=== PATIENT | female | born 1960 | race African-American/Black ===

== ENCOUNTER 2023-01-19 08:45 | Outpatient (AMB) | payer OTHER, SELFPAY ==
[2023-01-19 08:54] VITALS: BP 148/80; PULSE 57; O2SAT 98; BMI 29.8
--- NOTE | 2023-01-19 08:54 | MHC.PC.OV ---
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 Past medical history significant for hypertension, type 2 diabetes mellitus, hypercholesteremia. Patient speaks [place], patient presents today with her daughter that assists in interpretation. Patient requesting a refill on atorvastatin and eye drops, however she does not remember the name of her eye drops. Patient call and notify office of eye drop medication that she needs refilled. Referral placed to ophthalmology. Previous: Kathleen; at [facility] will request records, [facility] Medical History (Updated 01/19/23 @ 09:20 by RAFFI Calvillo) delivery delivered Surgical History (Updated 01/19/23 @ 09:03 by Rama Diehl MA) Status post removal of thyroid nodule Family History (Updated 01/19/23 @ 09:22 by RAFFI Calvillo) Mother No problems noted. Daughter No problems noted. Social History (Updated 01/19/23 @ 09:23 by RAFFI Calvillo) Household Members: Family Housing: House Alcohol intake: never Patient Tobacco Use Status: Never used Tobacco Questionnaire PHQ-9 Over the last 2 weeks, how often have you been bothered by any of the following problems? 1. Little interest or pleasure in doing things: not at all 2. Feeling down, depressed, or hopeless: not at all 3. Trouble falling or staying asleep, or sleeping too much: not at all 4. Feeling tired or having little energy: not at all 5. Poor appetite or overeating: not at all 6. Feeling bad about yourself - or that you are a failure or have let yourself or your family down: not at all 7. Trouble concentrating on things, such as reading the newspaper or watching television: not at all 8. Moving or speaking so slowly that other people could have noticed. Or the opposite - being so fidgety or restless that you have been moving around a lot more than usual: not at all 9. Thoughts that you would be better off or of hurting yourself in some way: not at all Total score: 0 Depression Screening Interpretation: Negative 89304 - PHQ-9 Billing: Yes Source: Developed by Drs. Johnathan Juárez, Chichi Keene, Robbie Woods and colleagues, with an educational aime from [employer]. Thrive Questionnaire Date Thrive assessed: 01/19/23 I am a: Patient What is your living situation today?: I have a steady place to live Within the past 12 months, did the food you bought not last and you didn't have the money to get more?: Never true Within the past 12 months, did you worry whether your food would run out before you got money to buy more?: Never true Do you have trouble paying for medicines?: Yes Do you have trouble getting transportation to medical appointments?: Yes Do you have trouble paying your heating and electricity bill?: No Do you have trouble taking care of your child, family member or friend?: No Do you have trouble with day-to-day activities such as bathing, preparing meals, shopping, managing finances, etc.?: No Are you currently unemployed and looking for a job?: No Are you interested in more education?: No AUDIT C Alcohol Use Questionnaire (AUDIT-C) 1. How often do you have a drink containing alcohol?: Never 3. How often do you have six or more drinks on one occasion?: Never Total Score: 0 CHRISTIN-7 AMB Questionnaire CHRISTIN-7 Date CHRISTIN - 7 assessed: 01/19/23 Feeling nervous, anxious, or on edge: 0 = Not at all Not being able to stop or control worryin = Not at all Worrying too much about different things: 0 = Not at all Trouble relaxin = Not at all Being so restless that it is hard to sit still: 0 = Not at all Becoming easily annoyed or irritable: 0 = Not at all Feeling afraid as if something awful might happen: 0 = Not at all Total CHRISTIN-7 score (0-4 normal; 5-9 mild; 10-14 moderate; 15-21 severe): 0 Source: Developed by Drs. Johnathan Juárez, Chichi Keene, Robbie Woods and colleagues, with an educational aime from [employer]. CHRISTIN-7 Assessment Billing CHRISTIN-7 Assessment Tool: CHRISTIN-7 Assessment 30268 Review of Systems Const Denies chills, Denies fatigue, Denies fever(s) and Denies poor appetite Eyes Denies no additional complaints ENT Reports Normal hearing present Card Denies chest pain, Denies syncope, Denies rapid heart rate and Denies dyspnea Resp Denies cough and Denies dyspnea GI Denies change in stool character, Denies constipation, Denies diarrhea, Denies nausea and Denies vomiting Denies urinary frequency, Denies dysuria and Denies urinary urgency Neuro Reports Normal hearing present, Denies confusion and Denies syncope Psych Denies confusion Endo Denies fatigue Physical exam (Primary Care) Vital Signs: Last Vital Signs Pulse 57 01/19/23 08:54 BP 148/80 H 01/19/23 08:54 Pulse Ox 98 01/19/23 08:54 Oxygen Delivery Method Room Air 01/19/23 08:54 BMI result Body Mass Index 29.8 Tobacco/Smoking Status: Tobacco use Status Tobacco use date assessed 01/19/23 01/19/23 09:07 Patient Tobacco Use Status Never used Tobacco 01/19/23 09:23 PHQ-9: PHQ-9 Score PHQ-9: Total score 0 01/19/23 09:24 Depression Screening Interpretation: Negative Thrive Assessment: Date of Thrive Assessment Date Thrive assessed 01/19/23 01/19/23 09:07 Const General: No confusion Orientation/consciousness: No confusion HENMT Head: Yes normocephalic and Yes atraumatic Eyes Conjunctivae: conjunctivae normal Chest Chest palpation & inspection: normal inspection of the chest Resp Effort & Inspection: normal respiratory effort Auscultation: clear to auscultation bilaterally, no crackles, no rhonchi and no wheezes Cardio Rate: regular rate Rhythm: regular rhythm Heart sounds: S1 normal heart sound present and S2 normal heart sound present GI Inspection: Yes normal to inspection Neuro General: No confusion Cranial nerves: Yes Normal hearing present Extrem General: No edema Results AMB Hemoglobin A1c AMB Hemoglobin A1c 7.9 % Last Edit by Rama Diehl MA on 01/19/23 09:09 Results Reviewed Results Reviewed: Laboratory Last Values Hgb A1c (Clinic) 7.9 % (4.0-6.0) H 01/19/23 09:08 Assessment and Plan Assessment & Plan (1) Type 2 diabetes mellitus: Code(s): E11.9 - Type 2 diabetes mellitus without complications Plan: Continue on metformin and glipizide hgb A1c ordered (2) Hypertension: Code(s): I10 - Essential (primary) hypertension Plan: Blood pressure elevated in office today. Continue on telmisartan-amlodipine Follow low salt diet and excercise (3) Hypocholesteremia: Code(s): E78.6 - Lipoprotein deficiency Plan: Continue on statin, refill sent to patients pharmacy. Fasting lipi panel ordered. Plan Follow up in 3 months for physical exam Orders: Orders Comprehensive [place]. Panel Fast Today I10 - Essential (primary) hypertension Hemoglobin A1c Today E11.9 - Type 2 diabetes mellitus without complications Lipid Panel Today E78.6 - Lipoprotein deficiency TSH reflex Free T4 Today Z13.29 - Encounter for screening for other suspected endocrine disorder Complete Blood Count Auto Diff Today Z13.0 - Encounter for screening for diseases of the blood and blood-forming organs and certain disorders involving the immune mechanism AMB Hemoglobin A1c Today E11.9 - Type 2 diabetes mellitus without complications Referrals Ophthalmology Referral Z01.00 - Encounter for examination of eyes and vision without abnormal findings Medications: New atorvastatin 40 mg PO DAILY 30 tabs 3RF E78.6 - Lipoprotein deficiency Coding Level of Care Code New Pt Level 4 (03801) Diagnoses Type 2 diabetes mellitus E11.9 Hypertension I10 Hypocholesteremia E78.6 Additional Codes CHRISTIN-7 Assessment Billing - CHRISTIN-7 Assessment Tool: CHRISTIN-7 Assessment 33782 ([id number])
== END 2023-01-19 09:46 | disposition home or self-care (01) ==
PROVIDERS: PCP Nurse Practitioner Family; Visit Provider Nurse Practitioner Family
DX: E11.9 Type 2 diabetes mellitus without complications (principal); I10 Essential (primary) hypertension; E78.6 Lipoprotein deficiency
CPT/HCPCS: 83036; 99204

== ENCOUNTER 2023-01-19 09:50 | Outpatient (REF) | payer OTHER, SELFPAY ==
[2023-01-19 10:07] LABS: MANUAL DIFF FLAG NO
[2023-01-19 10:33] LABS: Basophils Percent Auto 0.4 % (0-2); Eosinophils Absolute Auto 0.1 X10*3/uL (0.0-0.4); Eosinophils Percent Auto 1.5 % (0-4); Hematocrit 38.7 % (37.0-47.0); Hemoglobin 12.8 g/dl (12.0-16.0); Imm Gran Abs Auto 0.02 X10*3/uL (0.00-0.03); Imm Gran Pct Auto 0.4 % (0.0-0.4); Lymphocytes Absolute Auto 1.7 X10*3/uL (1.2-4.9); Lymphocytes Percent Auto 36.5 % (20-40); Mean Corpuscular HGB Conc 33.1 g/dl (31.0-35.0); Mean Corpuscular Hemoglobin 26.7 pg (27.0-33.0); Mean Corpuscular Volume 80.8 fL (80.0-98.0); Monocytes Absolute Auto 0.4 X10*3/uL (0.1-1.2); Monocytes Percent Auto 8.7 % (2-11); Neutrophils Absolute Auto 2.5 x10*3/uL (2.0-8.3); Neutrophils Percent Auto 52.5 % (45-73); Platelet Count 237 X10*3/uL (160-400); Red Blood Count 4.79 X10*6/uL (4.20-5.50); Red Cell Distribution Width 13.8 % (11.0-16.0); White Blood Count 4.7 X10*3/uL (4.8-10.8)
[2023-01-19 11:26] LABS: Estimated Average Glucose 174 mg/dL; Hemoglobin A1c % 7.7 %
[2023-01-19 11:51] LABS: Alanine Aminotransferase 13 U/L (0-31); Alkaline Phosphatase 107 U/L (39-117); Anion Gap 12 (12-20); Aspartate Amino Transferase 13 U/L (5-31); Bilirubin Total 0.4 mg/dL (0.0-1.0); Blood Urea Nitrogen 10 mg/dL (9-16); Calcium 9.4 mg/dL (8.4-10.2); Carbon Dioxide 28 mmol/L (22-29); Chloride 106 mmol/L (96-108); Cholesterol 120 mg/dL; Estimated Glomerular Filt Rate > 60; Glucose Fasting 179 mg/dL (60-99); HDL Cholesterol 42 mg/dL; LDL Cholesterol Calculated 71 mg/dl; Potassium 4.6 mmol/L (3.3-5.1); Sodium 141 mmol/L (135-145); Total Protein 7.1 g/dL (6.5-8.0); Triglycerides 35 mg/dL
[2023-01-19 11:56] LABS: TSH reflex Free T4 1.63 uIU/mL (0.32-4.0)
== END 2023-01-19 09:51 | disposition home or self-care (01) ==
LOC: HO.LAB 09:50
PROVIDERS: PCP Nurse Practitioner Family; Visit Provider Nurse Practitioner Family
DX: Z13.29 Encounter for screening for other suspected endocrine disorder (principal); Z13.0 Encounter for screening for diseases of the blood and blood-forming organs and certain disorders involving the immune mechanism; I10 Essential (primary) hypertension; E78.6 Lipoprotein deficiency; E11.9 Type 2 diabetes mellitus without complications
CPT/HCPCS: 36415; 80053; 80061; 83036; 84443; 85025

== ENCOUNTER 2023-04-20 07:45 | Outpatient (AMB) | payer OTHER, SELFPAY ==
[2023-04-20 08:29] VITALS: BP 156/80; PULSE 59; O2SAT 98; BMI 29.6
--- NOTE | 2023-04-20 08:29 | MHC.OFVISPED ---
Intake Pediatric Intake Visit Reasons: pe Allergies No Known Allergies Allergy (Verified 01/19/23 09:14) PFS Medical History (Updated 01/22/23 @ 12:41 by RAFFI Calvillo) delivery delivered Surgical History (Updated 01/19/23 @ 09:03 by Rama Diehl MA) Status post removal of thyroid nodule Family History (Updated 01/19/23 @ 09:22 by RAFFI Calvillo) Mother No problems noted. Daughter No problems noted. Social History (Updated 01/19/23 @ 09:23 by RAFFI Calvillo) Household Members: Family Housing: House Alcohol intake: never Patient Tobacco Use Status: Never used Tobacco Coding
--- NOTE | 2023-04-20 08:29 | MHC.PC.OV ---
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 Set Up Operator Language: Jonny Creole Gear Cutting Machine Set Up Operator Name: Kanwal Javier Information Interpreted: non-clinical & clinical Allergies No Known Allergies Allergy (Verified 04/20/23 08:34) Tobacco use date assessed: 04/20/23 Dental Screening Dental Screen Date: 04/20/23 Did you have a dental visit in the last 12 months?: No Did you have a dental problem in the last 6 months where you did not have access to dental care?: No HPI HPI Comments History of Present Illness Details 62-year-old female past medical history significant for hypertension, type 2 diabetes mellitus and hypercholesteremia. Patient last seen in January, presents today for physical exam. HGB A1c 8.2%, patient reports she was not taking medications. Refill sent on metformin and glipizide patient advised to follow low-carbohydrate diet. Blood pressure also elevated office today but patient reported that she did take her blood pressure medication yet. Patient advised to do so when she gets home. Mammogram: 2021, order Pap smear: Completed 2022, negative Colonoscopy: AGE 50, Referral Eye exam: Previously referred, Peggy nelsonoinmonica Flu shot declined at this time patient states she will get a different day. 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 Daughter No problems noted. Social History Household Members: Family Housing: House Alcohol intake: never Patient Tobacco Use Status: Never used Tobacco Cognitive needs: No Hearing needs: No Vision needs: No Questionnaire PHQ-9 Over the last 2 weeks, how often have you been bothered by any of the following problems? 1. Little interest or pleasure in doing things: not at all 2. Feeling down, depressed, or hopeless: not at all 3. Trouble falling or staying asleep, or sleeping too much: not at all 4. Feeling tired or having little energy: not at all 5. Poor appetite or overeating: not at all 6. Feeling bad about yourself - or that you are a failure or have let yourself or your family down: not at all 7. Trouble concentrating on things, such as reading the newspaper or watching television: not at all 8. Moving or speaking so slowly that other people could have noticed. Or the opposite - being so fidgety or restless that you have been moving around a lot more than usual: not at all 9. Thoughts that you would be better off or of hurting yourself in some way: not at all Total score: 0 Depression Screening Interpretation: Negative Depression Screening Done: Yes 81079 - PHQ-9 Billing: Yes Source: Developed by Drs. Johnathan Juárez, Chichi Keene, Robbie Woods and colleagues, with an educational aime from [employer]. Thrive Questionnaire Date Thrive assessed: 01/19/23 AUDIT C Alcohol Use Questionnaire (AUDIT-C) 1. How often do you have a drink containing alcohol?: Never 3. How often do you have six or more drinks on one occasion?: Never Total Score: 0 CHRISTIN-7 AMB Questionnaire CHRISTIN-7 Date CHRISTIN - 7 assessed: 04/20/23 Feeling nervous, anxious, or on edge: 0 = Not at all Not being able to stop or control worryin = Not at all Worrying too much about different things: 0 = Not at all Trouble relaxin = Not at all Being so restless that it is hard to sit still: 0 = Not at all Becoming easily annoyed or irritable: 0 = Not at all Feeling afraid as if something awful might happen: 0 = Not at all Total CHRISTIN-7 score (0-4 normal; 5-9 mild; 10-14 moderate; 15-21 severe): 0 Source: Developed by Drs. Johnathan Juárez, Robbie Orellana and colleagues, with an educational aime from [employer]. CHRISTIN-7 Assessment Billing CHRISTIN-7 Assessment Tool: CHRISTIN-7 Assessment 47430 Review of Systems Const Denies chills, Denies fatigue, Denies fever(s) and Denies poor appetite Eyes Denies no additional complaints ENT Reports Normal hearing present Card Denies chest pain, Denies syncope, Denies rapid heart rate and Denies dyspnea Resp Denies cough and Denies dyspnea GI Denies change in stool character, Denies constipation, Denies diarrhea, Denies nausea and Denies vomiting Denies urinary frequency, Denies dysuria and Denies urinary urgency Neuro Reports Normal hearing present, Denies confusion and Denies syncope Psych Denies confusion Endo Denies fatigue Physical exam (Primary Care) Vital Signs: Last Vital Signs Pulse 59 04/20/23 08:29 BP 156/80 H 04/20/23 08:29 Pulse Ox 98 04/20/23 08:29 Oxygen Delivery Method Room Air 04/20/23 08:29 BMI result Body Mass Index 29.6 Tobacco/Smoking Status: Tobacco use Status Tobacco use date assessed 04/20/23 04/20/23 08:30 Patient Tobacco Use Status Never used Tobacco 04/20/23 08:30 PHQ-9: PHQ-9 Score PHQ-9: Total score 0 04/20/23 09:40 Depression Screening Interpretation: Negative Thrive Assessment: Date of Thrive Assessment Date Thrive assessed 01/19/23 04/20/23 08:30 Const General: No confusion Orientation/consciousness: No confusion HENMT Head: Yes normocephalic and Yes atraumatic Ears: external ears normal and TM's normal bilaterally General nose exam: Normal external nose present and Normal nasal mucous membranes and turbinates present Face and sinus: Yes normal facial exam and Yes sinuses nontender Mouth: moist mucous membranes Throat: Yes tonsils normal Eyes Conjunctivae: conjunctivae normal Sclerae: sclerae normal Pupils: Equal, round and reactive pupils present and Pupils normal by confrontation EOM: EOMs intact bilaterally Direct Ophthalmoscopy: normal light reflex Neck Neck: Yes no lymphadenopathy and Yes supple Thyroid: Thyroid normal Chest Chest palpation & inspection: normal inspection of the chest Resp Effort & Inspection: normal respiratory effort Auscultation: clear to auscultation bilaterally, no crackles, no rhonchi and no wheezes Cardio Rate: regular rate Rhythm: regular rhythm Peripheral pulses: radial pulses present and dorsalis pedis present GI Inspection: Yes normal to inspection Palpation (GI): Soft to palpation, nontender and No hepatosplenomegaly present Auscultation: normoactive bowel sounds Skin General skin exam: no rashes or lesions noted Neuro General: No confusion Cranial nerves: Yes Equal, round and reactive pupils present and Yes Normal hearing present Cognition (Neuro): normal cognition Gait exam (Neuro): Normal gait present Motor exam (neuro): 5/5 motor strength present throughout Deep tendon reflexes (DTR's): Right brachioradialis reflex intensity grade: 2+, Left brachioradialis reflex intensity grade: 2+, Right patellar reflex intensity grade: 2+ and Left patellar reflex intensity grade: 2+ Extrem General: No edema Results AMB Hemoglobin A1c AMB Hemoglobin A1c 8.2 % Last Edit by ERNESTO Byrne on 04/20/23 08:49 Results Reviewed Results Reviewed: Laboratory Last Values Hgb A1c (Clinic) 8.2 % (4.0-6.0) H 04/20/23 08:36 Assessment and Plan Assessment & Plan (1) Type 2 diabetes mellitus: Code(s): E11.9 - Type 2 diabetes mellitus without complications Plan: Continue on glipizide and metformin. Patient educated to decrease the amount of carbohydrate intake such as pasta, bread, rice and potatoes are all sugar in addition to the sweet stuff. Remember that fruits are good but they also have sugar. Hemoglobin A1c 8.2%, goal < 7% (2) Hypertension: Code(s): I10 - Essential (primary) hypertension Plan: Continue on current medications. Follow low-salt diet exercise. (3) Hypercholesteremia: Code(s): E78.00 - Pure hypercholesterolemia, unspecified Plan: Avoid fried foods, chicken skin, eggs, butter,margarine, pastries and?? red meat. Continue on atorvastatin 40 mg daily. (4) Physical exam, annual: Code(s): Z00.00 - Encounter for general adult medical examination without abnormal findings Plan: Follow-up in 1 year for physical exam. Plan Follow-up in 3 months Orders: Orders AMB Hemoglobin A1c Today E11.9 - Type 2 diabetes mellitus without complications Medications: New latanoprost 0.005% 1 drp ophthalmic (eye) BEDTIME 7.5 mL 0RF glipizide 10 mg PO DAILY 30 tabs 3RF metformin 1,000 mg PO BID 30 tabs 3RF telmisartan-amlodipine 40-5 mg 1 tab PO DAILY 30 tabs 3RF Refilled timolol 0.5% (Betimol) 1 drp ophthalmic (eye) DAILY 15 mL 0RF atorvastatin 40 mg PO DAILY 30 tabs 3RF E78.6 - Lipoprotein deficiency Coding Level of Care Code Est Pt Prev Care 40-64y(08368) Diagnoses Type 2 diabetes mellitus E11.9 Hypertension I10 Hypercholesteremia E78.00 Physical exam, annual Z00.00 Additional Codes CHRISTIN-7 Assessment Billing - CHRISTIN-7 Assessment Tool: CHRISTIN-7 Assessment [id number] ([id number])
== END 2023-04-20 09:12 | disposition home or self-care (01) ==
PROVIDERS: PCP Nurse Practitioner Family; Visit Provider Nurse Practitioner Family
DX: E11.9 Type 2 diabetes mellitus without complications (principal)
CPT/HCPCS: 83036; 99396

== ENCOUNTER 2024-03-18 09:24 | Outpatient (AMB) | payer OTHER, SELFPAY ==
--- NOTE | 2024-03-18 09:37 | A.OFFPC_ITS ---
Vital Signs 03/18/24 09:50 Height 5 ft 3 in Weight 163 lb BMI 28.9 BP 134/74 Blood Pressure Location Rt brachial Position Sitting Respiration 14 Pulse 53 Pulse Source Pulse Oximeter Pulse Oximetry (%) 98 Oxygen Delivery Method Simple Mask Intake Visit Reasons: KEVIN/HTN, DM, Hypercholesteremia Intake Note: new patient to establish Allergies allopurinol Allergy (Severe, Verified 03/18/24 10:00) mouth stiff Medication List - Last Reconciled 03/18/24 by Tracie Horta, WATER FILTERER- atorvastatin 40 mg PO DAILY glipizide 10 mg PO DAILY metformin 1,000 mg PO BID Tobacco use date assessed: 03/18/24 Dental Screening Dental Screen Date: 03/18/24 Did you have a dental visit in the last 12 months?: No Did you have a dental problem in the last 6 months where you did not have access to dental care?: No Was dental information given to patient?: Patient has dentist HPI HPI Comments History of Present Illness Details 63-year-old Azerbaijani Creole speaking F wi th hypertension, type 2 diabetes mellitus, hyperlipidemia, glaucoma, anemia, PVD s/p c section, thyroid nodule removal 2020, cataract removal bilat Health Maintenance: ? Colon has never had one. Referred today. ? Mammo several years ago. ordered today ? DEXA overdue. ordered today ? PAP ? Tdap 03/26/19, Flu 03/18/2024 Specialists: Gastro Optho: DM Eye exam: January 2024 [facility]. Wears glasses. Needs local referral. placed today. Manufacturing Support Engineer: [id number] Preferred to call her dtr, Nhi, as the message was not being translated Here today as a new patient to [facility] care and for CPE. Dtr was called during the visit DM: Taking meds as directed. However ran out of Metformin A1c 9.2% today c/o Bad breath, was seeing a specialists in the past; needs a new referral. Has never tried any medication. She denies any sx of GERD. Otherwise feels fine. Plan Routine screening labs today: a1c 9.2%, mild microcytic anemia, otherwise WNL Mammo, colon, DEXA ordered Flu vaccine today Refer to optho DME exam Cont all meds as prescribed; Start MVI with Iron. FU 1 year for CPE sooner PRN This note is constructed using voice recognition software. While every effort has been made to ensure accuracy in [facility] sewer, still errors may have been included Sometimes, these errors may affect the content or meaning of the given sentence . [facility] Medical History (Updated 03/18/24 @ 16:23 by Tracie Horta [facility]) delivery delivered Surgical History (Updated 03/18/24 @ 10:04 by Jackelin Swain MA) History of throat surgery Status post removal of thyroid nodule Family History (Updated 03/18/24 @ 10:05 by Jackelin Swain MA) Mother No problems noted. Daughter No problems noted. Social History (Updated 03/18/24 @ 10:05 by Jackelin Swain MA) Household Members: Family Housing: House Are you a primary group care worker to a significant other at home: No Do you presently have visiting nurse or other home services: No Alcohol intake: never Patient Tobacco Use Status: Never used Tobacco Cognitive needs: No Hearing needs: No Vision needs: No Questionnaire PHQ-9 Over the last 2 weeks, how often have you been bothered by any of the following problems? 1. Little interest or pleasure in doing things: not at all 2. Feeling down, depressed, or hopeless: not at all 3. Trouble falling or staying asleep, or sleeping too much: not at all 4. Feeling tired or having little energy: not at all 5. Poor appetite or overeating: not at all 6. Feeling bad about yourself - or that you are a failure or have let yourself or your family down: not at all 7. Trouble concentrating on things, such as reading the newspaper or watching television: not at all 8. Moving or speaking so slowly that other people could have noticed. Or the opposite - being so fidgety or restless that you have been moving around a lot more than usual: not at all 9. Thoughts that you would be better off or of hurting yourself in some way: not at all Total score: 0 Depression Screening Interpretation: Negative Depression Screening Done: Yes 35046 - PHQ-9 Billing: Yes Source: Developed by Drs. Johnathan Juárez, Chichi Keene, Robbie Woods and colleagues, with an educational aime from [employer]. Thrive Questionnaire Date Thrive assessed: 03/18/24 I am a: Patient What is your living situation today?: I have a steady place to live Within the past 12 months, did the food you bought not last and you didn't have the money to get more?: Never true Within the past 12 months, did you worry whether your food would run out before you got money to buy more?: Never true Do you have trouble paying for medicines?: No Do you have trouble getting transportation to medical appointments?: No Do you have trouble paying your heating and electricity bill?: No Do you have trouble taking care of your child, family member or friend?: No Do you have trouble with day-to-day activities such as bathing, preparing meals, shopping, managing finances, etc.?: No Are you currently unemployed and looking for a job?: No Are you interested in more education?: No Please select the resources that you would like help with: None Currently or been in a relationship where the following occur: No concerns reported THRIVE Score: 0 AUDIT C Alcohol Use Questionnaire (AUDIT-C) 1. How often do you have a drink containing alcohol?: Never 3. How often do you have six or more drinks on one occasion?: Never Total Score: 0 Score Reviewed/Action Taken: Yes CHRISTIN-7 AMB Questionnaire CHRISTIN-7 Date CHRISTIN - 7 assessed: 03/18/24 Feeling nervous, anxious, or on edge: 0 = Not at all Not being able to stop or control worryin = Not at all Worrying too much about different things: 0 = Not at all Trouble relaxin = Not at all Being so restless that it is hard to sit still: 0 = Not at all Becoming easily annoyed or irritable: 0 = Not at all Feeling afraid as if something awful might happen: 0 = Not at all Total CHRISTIN-7 score (0-4 normal; 5-9 mild; 10-14 moderate; 15-21 severe): 0 Source: Developed by Drs. Johnathan Juárez, Chichi Keene, Robbie Woods and colleagues, with an educational aime from [employer]. CHRISTIN-7 Assessment Billing CHRISTIN-7 Assessment Tool: CHRISTIN-7 Assessment 86679 Review of Systems Const Details: Constitutional: Denies fever. Skin: Denies rash. Eye: Denies eye pain. ENMT: Denies sore throat and nasal congestion. Respiratory: Denies shortness of breath and cough. Gastrointestinal: Denies nausea, vomiting or abdominal pain. Cardiovascular: Denies chest pain and syncope. Genitourinary: Denies dysuria. Musculoskeletal: Denies back pain and extremity pain. Neurologic: Denies headaches, confusion, and weakness. Psychiatric: Denies suicidal thoughts and substance abuse. Allergy/ Immunologic: Denies impaired immunity. Physical exam (Primary Care) Vital Signs: Last Vital Signs Pulse 53 03/18/24 09:50 Resp 14 03/18/24 09:50 BP 134/74 03/18/24 09:50 Pulse Ox 98 03/18/24 09:50 Oxygen Delivery Method Simple Mask 03/18/24 09:50 BMI result Body Mass Index 28.9 BMI Assessment/Plan discussion: High BMI High, discussed plan: lifestyle Tobacco/Smoking Status: Tobacco use Status Tobacco use date assessed 03/18/24 03/18/24 09:52 Patient Tobacco Use Status Never used Tobacco 03/18/24 10:05 PHQ-9: PHQ-9 Score PHQ-9: Total score 0 03/18/24 14:54 Depression Screening Interpretation: Negative Thrive Assessment: Date of Thrive Assessment Date Thrive assessed 03/18/24 03/18/24 09:52 Currently or been in a relationship where the following occur: No concerns reported Advance Care Planning discussion: Exists, not on file Date of discussion: 03/18/24 Forms completed: Health Care Proxy and MOLST Time spent: 1-15 minutes, not on file Actual minutes spent: 5 Did not discuss due to Cultural/Spiritual beliefs: Yes Const Other: General: Well developed, well nourished, in no acute distress. Appears stated age. Head: Normocephalic, atraumatic. Eyes: Pupils are equal, round and reactive to light and accommodation. Co njunctivae are clear. Vision grossly normal. Ears: TMs clear AU, EACS WNL Nose: Patent, without discharge. Mouth: There are no ulcers or lesions noted. No inflammation, no post nasal drip, no plaques nor exudates. Neck: Supple, no adenopathy or thyromegaly. Lungs: Clear to auscultation bilaterally. No rales, rhonchi or wheeze noted. Good air flow in all humphrey. Heart: Regular rate and rhythm. No murmurs, click, rubs or gallops are noted. Abdomen: Bowel sounds present in all quadrants. The abdomen is soft, nontender, with no masses or organomegaly noted. No hernias are noted. Musculoskeletal: Joints are nontender, without swelling, redness, or effusions. Range of motion is observed to be normal. Pulses: Peripheral pulses are equal and palpable bilaterally. Extremities: No clubbing, cyanosis nor edema is noted. Hairless, decreased PP bilat,skin intact Neurologic: Gait and station normal. Cranial Nerves 2-12 intact. Motor strength grossly symmetrical and intact. No sensory loss. Balance normal. Skin: No rashes, ulcers, or lesions noted. Turgor is good. Skin color is good. Hair and nails are without abnormalities. Psych: Normal eye contact, affect and mood appropriate, and normal interactions. Patient is alert and appropriate to context. Office Procedures Flu Questionnaire Does the patient have a severe egg allergy?: No Does the patient have severe life threatening allergies?: No Does the patient have a fever or illness today?: No Has the patient ever had Guillain-[place] Syndrome?: No Has the patient ever had any past reaction to a flu shot?: No Immunizations Fluarix Triv 5260-7258 (PF) 45 mcg (15 mcg x 3)/0.5 mL IM syringe Performing Provider: ABNER Arce Performing Location: [facility] [place] [facility] Administered by: Bell Jerome RN on 03/18/24 10:33 Dose Route Admin Location Dispensed Lot Number Expiration Date [facility] [place][NOTE 2] Air Surveillance Operator 0.5 mL IM Left Deltoid 0.5 mL [id number] 12/05/24 [id number] QuickProNotes VIS Given Date VIS Provided VIS Publication Date 03/18/24 Single Vaccine 21 Eligibility Eligibility Date Funding Source Not [facility] Eligible 03/18/24 Private Coding Level of Care Code New Pt Prev Care 40-64y(81937) Diagnoses Encounter for general adult medical examination without abnormal findings Z00.00 Hypercholesteremia E78.00 DM type 2 causing complication E11.8 Screen for colon cancer Z12.11 Halitosis R19.6 Menopause Z78.0 Microcytic anemia D50.9 Primary hypertension I10 Hypertension type: primary hypertension PVD (peripheral vascular disease) I73.9 BMI 28.0-28.9,adult Z68.28 Additional Codes CHRISTIN-7 Assessment Billing - CHRISTIN-7 Assessment Tool: CHRISTIN-7 Assessment 15585 ([id number]) Vital Signs *Quality* - Advance Care Planning discussion: Exists, not on file ([id number]) Vital Signs *Quality* - Time spent: 1-15 minutes, not on file ([id number]) Vital Signs *Quality* - Did not discuss due to Cultural/Spiritual beliefs: Yes ([id number]) Assessment & Plan Assessment & Plan (1) Encounter for general adult medical examination without abnormal findings: Code(s): Z00.00 - Encounter for general adult medical examination without abnormal findings Plan: . (2) Hypercholesteremia: Code(s): E78.00 - Pure hypercholesterolemia, unspecified Category: Medical Plan: . (3) DM type 2 causing complication: Code(s): E11.8 - Type 2 diabetes mellitus with unspecified complications Category: Medical Plan: . (4) Screen for colon cancer: Code(s): Z12.11 - Encounter for screening for malignant neoplasm of colon Category: Medical Plan: . (5) Halitosis: Code(s): R19.6 - Halitosis Category: Medical Plan: . (6) Menopause: Code(s): Z78.0 - Asymptomatic menopausal state Category: Medical Plan: . (7) Microcytic anemia: Code(s): D50.9 - Iron deficiency anemia, unspecified Category: Medical Plan: . (8) Hypertension: Code(s): I10 - Essential (primary) hypertension Category: Medical Qualifiers: Hypertension type: primary hypertension Qualified Code(s): I10 - Esse ntial (primary) hypertension Plan: . (9) PVD (peripheral vascular disease): Comment: based on clinical exam, monitor skin integrity. Code(s): I73.9 - Peripheral vascular disease, unspecified Category: Medical Plan: . (10) BMI 28.0-28.9,adult: Code(s): Z68.28 - Body mass index [BMI] 28.0-28.9, adult Category: Medical Plan: . Plan . Orders: Orders Comprehensive Met. Panel Today E11.8 - Type 2 diabetes mellitus with unspecified complications, E78.00 - Pure hypercholesterolemia, unspecified Hemoglobin A1c Today E11.8 - Type 2 diabetes mellitus with unspecified complications, E78.00 - Pure hypercholesterolemia, unspecified LDL Cholesterol Direct Today E11.8 - Type 2 diabetes mellitus with unspecified complications, E78.00 - Pure hypercholesterolemia, unspecified Vitamin D 25-OH Total Today E11.8 - Type 2 diabetes mellitus with unspecified complications, E78.00 - Pure hypercholesterolemia, unspecified Vitamin B12 and Folate Today E11.8 - Type 2 diabetes mellitus with unspecified complications, E78.00 - Pure hypercholesterolemia, unspecified Influenza [id number] Immunization Today Z23 - Encounter for immunization Complete Blood Count no Diff Today E11.8 - Type 2 diabetes mellitus with unspecified complications, E78.00 - Pure hypercholesterolemia, unspecified TSH reflex Free T4 Today E11.8 - Type 2 diabetes mellitus with unspecified complications, E78.00 - Pure hypercholesterolemia, unspecified Microalbumin, Random (w Creat) Today E11.8 - Type 2 diabetes mellitus with unspecified complications, E78.00 - Pure hypercholesterolemia, unspecified XR DEXA axial skeleton Today Z12.31 - Encounter for screening mammogram for malignant neoplasm of breast, Z78.0 - Asymptomatic menopausal state MM tomosynthesis screening BI Today Z12.31 - Encounter for screening mammogram for malignant neoplasm of breast, Z78.0 - Asymptomatic menopausal state Referrals Gastroenterology Referral R19.6 - Halitosis, Z12.11 - Encounter for screening for malignant neoplasm of colon Diabetic Eye Exam Referral E11.8 - Type 2 diabetes mellitus with unspecified complications Medications: New multivitamin with iron 1 tab PO DAILY 90 tabs 2RF Changed From metformin 1,000 mg PO BID 30 tabs 0RF To metformin 1,000 mg PO BID 180 tabs 2RF 90 days Refilled atorvastatin 40 mg PO DAILY 90 ea 2RF E78.6 - Lipoprotein deficiency glipizide 10 mg PO DAILY 90 tabs 2RF Patient Instructions: Health screenings for women You should visit your health care provider from time to time, even if you are healthy. The purpose of these visits is to: Screen for medical issues Assess your risk for future medical problems Encourage a healthy lifestyle Update vaccinations and other preventive care services Help you get to know your provider in case of an illness Information Even if you feel fine, you should still see your provider for regular checkups. These visits can help you avoid problems in the future. For example, the only way to find out if you have high blood pressure is to have it checked regularly. High blood sugar and high cholesterol levels also may not have any symptoms in the early stages. A simple blood test can check for these conditions. There are specific times when you should see your provider or receive specific health screenings. The [place] Preventive Services Task Force publishes a list of recommended screenings. Below are screening guidelines for women ages 18 to 39. BLOOD PRESSURE SCREENING Your blood pressure should be checked at least once every 3 to 5 years if: Your blood pressure is in the normal range (top number less than 120 mm Hg and bottom number less than 80 mm Hg) You don't have risk factors for high blood pressure Ask your provider if you need your blood pressure checked more often if: The top number is 120 to 129 mm Hg or the bottom number is 70 to 79 mm Hg You have diabetes, heart disease, kidney problems, are overweight, or have certain other health conditions You have a first-degree relative with high blood pressure You are Black You had high blood pressure during a If the top number is 130 mm Hg or greater or the bottom number is 80 mm Hg or greater, this is considered stage 1 hypertension. Schedule an appointment with your provider to learn how you can reduce your blood pressure. Watch for blood pressure screenings in your area. Ask your provider if you can stop in to have your blood pressure checked. BREAST CANCER SCREENING Experts do not agree about the benefits of breast self-exams in finding breast cancer or saving lives. Talk to your provider about what is best for you. A screening mammogram is not recommended for most women under age 40. Your provider may discuss and recommend mammograms, MRI scans, or ultrasounds if you have an increased risk for breast cancer, such as: A mother or sister who had breast cancer at a young age (most often starting screening earlier than the age the close relative was diagnosed) You carry a high-risk genetic marker CERVICAL CANCER SCREENING Cervical cancer screening should start at age 21 years unless your provider advises otherwise. After the first test: Women ages 21 through 29 should have a Pap test every 3 years. Exoprts do not agree on whether HPV testing is recommended for this age group. Women ages 30 through 65 should be screened with either a Pap test every 3 years or the HPV test every 5 years or both tests every 5 years (called cotesting ). Women who have been treated for precancer (cervical dysplasia) should continue to have Pap tests for 20 years after treatment or until age 65, whichever is longer. If you have had your uterus and cervix removed (total hysterectomy), and you have not been diagnosed with cervical cancer or precancer (high grade cervical neoplasia), you do not need cervical cancer screening. CHOLESTEROL SCREENING Cholesterol screening should begin at: Age 45 for women with no known risk factors for coronary heart disease Age 20 for women with known risk factors for coronary heart disease Repeat cholesterol screening should take place: Every 5 years for women with normal cholesterol levels More often if changes occur in lifestyle (including weight gain and diet) More often if you have diabetes, heart disease, kidney problems, or certain other conditions DIABETES SCREENING You should be screened for diabetes starting at age 35 and then repeated every 3 years if you have no risk factors for diabetes. Screening may need to start earlier and be repeated more often if you have other risk factors for diabetes, such as: You have a first degree relative with diabetes. You are overweight or have obesity. You have high blood pressure, prediabetes, or a history of heart disease. Screening for diabetes should be done if you are planning to become and you are overweight and have other risk factors such as high blood pressure. DENTAL EXAM Go to the dentist once or twice every year for an exam and cleaning. Your dentist will evaluate if you need more frequent visits. EYE EXAM Have an eye exam every 5 to 10 years before age 40. If you have vision problems, have an eye exam every 2 years or more often if recommended by your provider. You should have an eye exam that includes an examination of your retina (back of your eye) at least every year if you have diabetes. IMMUNIZATIONS Commonly needed vaccines include: Flu shot: get one every year. COVID-19 vaccine: ask your provider what is best for you. Tetanus-diphtheria and acellular pertussis (Tdap) vaccine: have one at or after age 19 as one of your tetanus-diphtheria vaccines if you did not receive it as an adolescent. Tetanus-diphtheria: have a booster (or Tdap) every 10 years. Varicella vaccine: receive 2 doses if you never had chickenpox or the varicella vaccine. Hepatitis B vaccine: receive 2, 3, or 4 doses, depending on your exact circumstances. Measles, mumps, and rubella (MMR) vaccine: receive 1 to 2 doses if you are not already immune to MMR. Your provider can tell you if you are immune. Ask your provider about the human papillomavirus (HPV) vaccine if: You have not received the HPV vaccine in the past You have not completed the full vaccine series (you should catch up on this shot) Ask your provider if you should receive other immunizations if you have certain health problems that increase your risk for some diseases such as pneumonia. INFECTIOUS DISEASE SCREENING Women who are sexually active should be screened for chlamydia and gonorrhea up until age 25. Women 25 years and older should be screened for chlamydia and gonorrhea if at high risk. Screening for hepatitis C: All adults ages 18 to 79 should get a one-time test for hepatitis C. people should be screened at every . Screening for human immunodeficiency virus (HIV): All people ages 15 to 65 should get a one-time test for HIV. Depending on your lifestyle and medical history, you may also need to be screened for infections such as syphilis and HIV, as well as other infections. PHYSICAL EXAM All adults should visit their provider from time to time, even if they are healthy. The purpose of these visits is to: Screen for disease Assess your risk of future medical problems Encourage a healthy lifestyle Update your vaccinations and other preventive care services Maintain a relationship with a provider in case of an illness Your height, weight, and BMI should be checked at every exam. During your exam, your provider may ask you about: Depression and anxiety Diet and exercise Alcohol and tobacco use Safety issues, such as using seat belts, smoke detectors, and intimate partner violence Your medicines and risk for interactions SKIN SELF-EXAM Your provider may check your skin for signs of skin cancer, especially if you're at high risk, such as if you: Have had skin cancer before Have close relatives with skin cancer Have a weakened immune system OTHER SCREENING Talk with your provider about colon cancer screening if you have a strong family history of colon cancer or polyps, or if you have had inflammatory bowel disease or polyps yourself. Routine bone density screening of women under 40 is not recommended.
[2024-03-18 09:50] VITALS: BP 134/74; PULSE 53; RESP 14; O2SAT 98; BMI 28.9
== END 2024-03-18 10:31 | disposition home or self-care (01) ==
PROVIDERS: PCP Nurse Practitioner Family; Visit Provider Nurse Practitioner Family
DX: Z00.00 Encounter for general adult medical examination without abnormal findings (principal); E11.8 Type 2 diabetes mellitus with unspecified complications; I73.9 Peripheral vascular disease, unspecified; Z68.28 Body mass index [BMI] 28.0-28.9, adult; E66.811 Obesity, class 1; E78.00 Pure hypercholesterolemia, unspecified; R19.6 Halitosis; Z12.11 Encounter for screening for malignant neoplasm of colon; Z78.0 Asymptomatic menopausal state; D50.9 Iron deficiency anemia, unspecified; I10 Essential (primary) hypertension

== ENCOUNTER → 2024-03-18 09:24 | Outpatient (BNVA) | payer OTHER, SELFPAY | PROVIDERS: PCP Nurse Practitioner Family; Visit Provider Nurse Practitioner Family | DX: Z00.00 Encounter for general adult medical examination without abnormal findings (principal); Z23 Encounter for immunization; E78.00 Pure hypercholesterolemia, unspecified; E11.8 Type 2 diabetes mellitus with unspecified complications; R19.6 Halitosis; D50.9 Iron deficiency anemia, unspecified; I10 Essential (primary) hypertension; I73.9 Peripheral vascular disease, unspecified; Z78.0 Asymptomatic menopausal state | CPT/HCPCS: 90471; 90656; 96127; 99386 ==

== ENCOUNTER 2024-03-18 10:50 | Outpatient (REF) | payer OTHER, SELFPAY ==
[2024-03-18 14:09] LABS: Hemoglobin 12.8 g/dl (12.0-16.0); Mean Corpuscular HGB Conc 32.8 g/dl (31.0-35.0); Mean Corpuscular Hemoglobin 26.2 pg (27.0-33.0); Mean Corpuscular Volume 79.9 fL (80.0-98.0); Mean Platelet Volume 11.5 fL (9.4-12.3); Platelet Count 203 X10*3/uL (160-400); Red Blood Count 4.88 X10*6/uL (4.20-5.50); Red Cell Distribution Width 13.6 % (11.0-16.0); White Blood Count 4.7 X10*3/uL (4.8-10.8)
[2024-03-18 14:29] LABS: Alanine Aminotransferase 16 U/L (0-31); Albumin Level 4.1 g/dL (3.5-5.0); Alkaline Phosphatase 91 U/L (39-117); Anion Gap 10 (12-20); Aspartate Amino Transferase 17 U/L (5-31); Bilirubin Total 0.7 mg/dL (0.0-1.0); Blood Urea Nitrogen 10 mg/dL (9-16); Calcium 9.3 mg/dL (8.4-10.2); Carbon Dioxide 28 mmol/L (22-29); Chloride 108 mmol/L (96-108); Estimated Glomerular Filt Rate > 60; Glucose Random 211 mg/dL (60-115); Sodium 142 mmol/L (135-145)
[2024-03-18 14:39] LABS: Estimated Average Glucose 217 mg/dL; Hemoglobin A1c % 9.2 % (<6.0); Total Hemoglobin (HGBA1C) 3164.4645 umol/L
[2024-03-18 14:46] LABS: Vitamin D 25-OH Total 34.3 ng/mL (>30)
[2024-03-18 14:55] LABS: Creatinine Urine 179.06 mg/dL; Microalbum/Creatinine Ratio Ur 12.2 ug/mg cr (<30)
[2024-03-18 15:05] LABS: Folate 12.4 ng/mL (> or = 4.0); Vitamin B12 716 pg/mL (200-900)
[2024-03-21 07:43] LABS: LDL Cholesterol Direct 40 mg/dL (<100)
== END 2024-03-18 10:51 | disposition home or self-care (01) ==
LOC: HO.WFDLDS 10:50
PROVIDERS: Visit Provider Nurse Practitioner Family
DX: E11.8 Type 2 diabetes mellitus with unspecified complications (principal); E78.00 Pure hypercholesterolemia, unspecified
CPT/HCPCS: 36415; 80053; 82043; 82306; 82570; 82607; 82746; 83036; 83721; 84443; 85027

== ENCOUNTER 2024-04-20 07:21 | Outpatient (REF) | payer OTHER, SELFPAY ==
--- NOTE | ~2024-04-20 | MM_ITS ---
EXAMINATION: MM SCREENING DIGITAL BREAST TOMOSYNTHESIS, BILATERAL CLINICAL INFORMATION: Screening. Asymptomatic. COMPARISON: Mammography: No priors available for comparison. TECHNIQUE: Digital breast mammography with tomosynthesis is performed in both the craniocaudal and mediolateral oblique views along with computer-aided detection (CAD). FINDINGS: The breasts are heterogeneously dense, which may obscure small masses (ACR BI-RADS breast composition Category c). There are no significant masses, abnormal calcifications, or other abnormalities. MM/MM tomosynthesis screening BI IMPRESSION: No mammographic evidence of malignancy. ASSESSMENT: BI-RADS BI-RADS 1 - Negative RECOMMENDATION: Routine annual mammography screening. 1 year F/U This examination should not preclude the clinical evaluation of a suspicious palpable abnormality. This patient's information was entered into a reminder system with a target due date for their next mammogram. Electronically signed by: Lovely Ochoa DO 04/28/2024 06:15 PM [facility]
--- NOTE | ~2024-04-20 | MM_ITS ---
EXAMINATION: BONE DENSITOMETRY CLINICAL INDICATION: Asymptomatic menopausal state. COMPARISON: This is the patient's baseline examination. TECHNIQUE: Using a [employer] DXA System (software version: 13.1) manufactured by [employer], dual-energy x-ray absorptiometry was performed of the lumbar spine and left hip. The images are of good technical quality. Summary results are attached. FINDINGS: LEFT FEMUR, NECK: BMD 0.751 g/cm2, Z-score -1.8, T-score -2.1, osteopenia. LEFT FEMUR, TOTAL: BMD 0.823 g/cm2, Z-score -1.5, T-score -1.5, osteopenia. AP SPINE L1-L4: BMD 0.877 g/cm2, Z-score -2.0, T-score -2.5, osteoporosis. IDENTIFIED RISK FACTORS: Menopause. HISTORY OF FRACTURE: None listed. MEDICATIONS: Calcium, vitamin D. MM/XR DEXA axial skeleton IMPRESSION: 1. DIAGNOSIS: Osteoporosis based on the lowest T-score value of -2.5 in the lumbar spine applying World Health Organization criteria. 2. 10-YEAR FRACTURE RISK PREDICTION, FRAX: According to the guidelines, FRAX calculation should only be performed on patients in the osteopenia bone density category. Therefore, FRAX was not performed on this patient. 3. Treatment Recommendations: NOF guidelines recommend consideration for treatment in postmenopausal women and men age 50 and older presenting with the following: -A hip or vertebral (clinical or morphometric) fracture. -T-score less than or equal to -2.5 at the femoral neck or spine after appropriate evaluation to exclude secondary causes. -Low bone mass at the hip or spine and a 10-year fracture probability by FRAX of greater than or equal to 3% for hip fracture or greater than or equal to 20% for major osteoporotic fracture based on the [place] adapted WHO algorithm. 4. Other Recommendations: All treatment decisions require clinical judgment and consideration of individual patient factors, including patient preferences, comorbidities, previous drug use, risk factors not captured in the FRAX model (e.g. frailty, falls, vitamin D deficiency, increased bone turnover, interval significant decline in bone density) and possible under or overestimation of fracture risk by FRAX. Additional medical evaluation for secondary cause of low bone mineral density may be appropriate. FUTURE SCAN RECOMMENDATION: People with diagnosed cases of osteoporosis or at high risk for fracture should have regular bone mineral density tests. For patients eligible for Medicare, routine testing is allowed once every 2 years. The testing frequency can be increased to one year for patients who have rapidly progressing disease, those who are receiving or discontinuing medical therapy to restore bone mass, or have additional risk factors. Electronically signed by: Gayathri Sheehan MD 04/21/2024 01:39 PM [facility]
== END 2024-04-20 07:22 | disposition home or self-care (01) ==
LOC: HO.MAMMO 07:21
PROVIDERS: PCP Nurse Practitioner Family; Visit Provider Nurse Practitioner Family
DX: Z12.31 Encounter for screening mammogram for malignant neoplasm of breast (principal); Z13.820 Encounter for screening for osteoporosis; Z78.0 Asymptomatic menopausal state
CPT/HCPCS: 77063; 77067; 77080

== ENCOUNTER → 2024-04-20 08:00 | Outpatient (BNV) | payer OTHER, SELFPAY | PROVIDERS: PCP Nurse Practitioner Family; Visit Provider Internal Medicine | DX: Z12.31 Encounter for screening mammogram for malignant neoplasm of breast (principal) | CPT/HCPCS: 77063; 77067 ==

== ENCOUNTER 2024-04-26 09:50 | Outpatient (AMB) | payer OTHER, SELFPAY ==
--- NOTE | 2024-04-26 09:54 | MHC.OFFVIS ---
Vital Signs 04/26/24 10:01 Height 5 ft 3.45 in Weight 162 lb 11.218 oz BMI 28.4 BP 104/58 L Blood Pressure Location Lt brachial Position Sitting Pulse 58 Pulse Source Pulse Oximeter Intake Visit Reasons: Osteoporosis-lvm Intake Note: New patient present today for Osteoporosis, externally referred by PCP. Outside Sales Representative Required: Yes Outside Sales Representative Language: Hong Konger Crejeffrey Outside Sales Representative Services: Outside Sales Representative Present Outside Sales Representative Name: Davide [phone] Information Interpreted: non-clinical & clinical Accompanied by: Self / Same As Patient Allergies allopurinol Allergy (Severe, Verified 04/26/24 10:02) mouth stiff Medication List - Last Reconciled 04/26/24 by Johnathan Parker MD atorvastatin 40 mg PO DAILY glipizide 10 mg PO DAILY metformin 1,000 mg PO BID 90 days multivitamin with iron 1 tab PO DAILY HPI Comments Details: 63 YO Female with is seen in consultation at the request of PCP for Osteoporosis. Pt is poor historian First diagnosed in 1999.Never saw specialist before Never Received treatment in the past No history of pathologic fracture or ONJ. Has few servings of dietary calcium per day in the form of occasional . Not Takes Calcium supplement . Not Takes Vitamin D daily. Denies ever using PPI, anticoagulant, antiepileptic or glucocorticoid medication. Does weight bearing exercise several days per week in the form of walking . 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 Not UTD on dental cleanings and sees dentist every 6 months. No planned upcoming dental work or extractions. DXA dated 04/20/2024:COMPARISON: This is the patient's baseline examination. TECHNIQUE: Using a [employer] DXA System (software version: 13.1) manufactured by [employer], dual-energy x-ray absorptiometry was performed of the lumbar spine and left hip. The images are of good technical quality. Summary results are attached. FINDINGS: LEFT FEMUR, NECK: BMD 0.751 g/cm2, Z-score -1.8, T-score -2.1, osteopenia. LEFT FEMUR, TOTAL: BMD 0.823 g/cm2, Z-score -1.5, T-score -1.5, osteopenia. AP SPINE L1-L4: BMD 0.877 g/cm2, Z-score -2.0, T-score -2.5, osteoporosis. IDENTIFIED RISK FACTORS: Menopause. HISTORY OF FRACTURE: None listed. MEDICATIONS: Calcium, vitamin D. MM/XR DEXA axial skeleton IMPRESSION: 1. DIAGNOSIS: Osteoporosis based on the lowest T-score value of -2.5 in the lumbar spine applying World Health Organization criteria. Labs: [facility] Medical History (Updated 04/21/24 @ 16:12 by Tracie Horta [facility]) delivery delivered Surgical History (Updated 03/18/24 @ 10:04 by Jackelin Swain MA) History of throat surgery Status post removal of thyroid nodule Family History (Updated 03/18/24 @ 10:05 by Jackelin Swain MA) Mother No problems noted. Daughter No problems noted. Social History (Updated 03/18/24 @ 10:05 by Jackelin Swain MA) Household Members: Family Housing: House Are you a primary med care manager to a significant other at home: No Do you presently have visiting nurse or other home services: No 75 years or older and lives alone: No Alcohol intake: never Patient Tobacco Use Status: Never used Tobacco Cognitive needs: No Hearing needs: No Vision needs: No Physical Exam There are no Cushingoid features. Absence of blue sclera. Absence of kyphosis. Thyroid gland is of nl size and weighs 15 gms. There are no thyroid nodules palpated. Lungs CTA. Heart S1 S2 Reg R/R Abdominal exam benign. Muscle strength 5/5 . Examination of spine reveals absence of tenderness on palpation Assessment & Plan Assessment & Plan (1) Osteoporosis: Comment: 04/2024 1. DIAGNOSIS: Osteoporosis based on the lowest T-score value of -2.5 in the lumbar spine applying World Health Organization criteria. Code(s): M81.0 - Age-related osteoporosis without current pathological fracture Category: Medical Plan: This is a 63-year-old female with a history of borderline osteoporosis. Rule out secondary causes Plan is to complete the secondary workup by checking an SPEP, urine immunofixation, phosphorus level, 24 hour urine for calcium and creatinine. Will ensure 1200 mg of calcium and vitamin-D supplementation continued. Assuming secondary workup is negative could consider pharmacotherapy with an anti resorptive like an oral bisphosphonate. I asked if the patient could bring in Wolof speaking relative with her to the follow-up appointment for more detailed discussion of pharmacologic therapy Orders: Orders Creatinine, 24 Hr Group Today M81.0 - Age-related osteoporosis without current pathological fracture Immunofixation, Random Urine Today M81.0 - Age-related osteoporosis without current pathological fracture Phosphorus Today M81.0 - Age-related osteoporosis without current pathological fracture Protein Electrophoresis, Serum Today M81.0 - Age-related osteoporosis without current pathological fracture Calcium, 24 Hr Ur Today M81.0 - Age-related osteoporosis without current pathological fracture Coding Level of Care Code New Pt Level 4 (22343) Diagnoses Osteoporosis M81.0
[2024-04-26 10:01] VITALS: BP 104/58; PULSE 58; BMI 28.4
== END 2024-04-26 10:27 | disposition home or self-care (01) ==
PROVIDERS: PCP Nurse Practitioner Family; Visit Provider Internal Medicine Endocrinology, Diabetes & Metabolism
DX: M81.0 Age-related osteoporosis without current pathological fracture (principal)
CPT/HCPCS: 99204

== ENCOUNTER → 2024-04-26 09:50 | Outpatient (BNVA) | payer OTHER, SELFPAY | PROVIDERS: PCP Nurse Practitioner Family; Visit Provider Internal Medicine Endocrinology, Diabetes & Metabolism | DX: M81.0 Age-related osteoporosis without current pathological fracture (principal) | CPT/HCPCS: 99202 ==

== ENCOUNTER 2024-08-23 12:55 | Outpatient (REF) | payer OTHER, SELFPAY ==
[2024-08-23 13:45] LABS: Total Volume 24 Hour Urine 2000 mL
[2024-08-23 14:10] LABS: Creatinine, 24Hr Urine 1.1 G/Day (1.0-2.0); Creatinine, mg/dL 53.55
[2024-08-24 18:23] LABS: Calcium, 24 Hr Urine 76 mg/24 h; Calcium/Creatinine Ratio 73 mg/g creat (30-275); Creatinine 24Hr Urine 1.04 g/24 h (0.50-2.15)
== END 2024-08-23 12:56 | disposition home or self-care (01) ==
LOC: HO.10HDLNP 12:55
PROVIDERS: Visit Provider Internal Medicine Endocrinology, Diabetes & Metabolism
DX: M81.0 Age-related osteoporosis without current pathological fracture (principal)
CPT/HCPCS: 82340; 82570

== ENCOUNTER 2024-08-31 07:57 | Outpatient (REF) | payer OTHER, SELFPAY ==
[2024-08-31 10:52] LABS: Phosphorus 3.8 mg/dL (2.7-4.5)
[2024-09-01 21:09] LABS: Prot Elec - Albumin 3.9 g/dL (3.8-4.8); Prot Elec - Alpha1 0.2 g/dL (0.2-0.3); Prot Elec - Alpha2 0.5 g/dL (0.5-0.9); Prot Elec - Beta 1 0.5 g/dL (0.4-0.6); Prot Elec - Beta 2 0.5 g/dL (0.2-0.5); Prot Elec - Gamma 1.1 g/dL (0.8-1.7); Prot Elec - Total Protein 6.6 g/dL (6.1-8.1)
== END 2024-08-31 07:58 | disposition home or self-care (01) ==
LOC: HO.10HDL 07:57
PROVIDERS: Visit Provider Internal Medicine Endocrinology, Diabetes & Metabolism
DX: M81.0 Age-related osteoporosis without current pathological fracture (principal)
CPT/HCPCS: 84100; 84165; 86335

== ENCOUNTER 2024-09-08 11:30 | Outpatient (AMB) | payer OTHER, SELFPAY ==
--- NOTE | 2024-09-08 11:31 | A.OFFVIS_ITS ---
Vital Signs 09/08/24 11:34 Height 5 ft 3.45 in Weight 159 lb 2.78 oz BMI 27.8 BP 152/72 H Blood Pressure Location Rt brachial Position Sitting Pulse 47 L Pulse Source Pulse Oximeter Pulse Oximetry (%) 99 Oxygen Delivery Method Room Air Intake Visit Reasons: Osteoporosis Intake Note: Patient present today for Osteoporosis follow up. Dock Boss Required: Yes Dock Boss Language: Singaporean Crejeffrey Dock Boss Services: Dock Boss Offered & Declined Accompanied by: Son Allergies allopurinol Allergy (Severe, Verified 09/08/24 11:35) mouth stiff Medication List - Last Reconciled 09/08/24 by Johnathan Parker MD atorvastatin 40 mg PO DAILY glipizide 10 mg PO DAILY metformin 1,000 mg PO BID 90 days multivitamin with iron 1 tab PO DAILY telmisartan-amlodipine 40-5 mg 1 tab PO DAILY HPI Comments Details: 64 YO Female with is seen in consultation at the request of PCP for Osteoporosis. Pt is poor historian First diagnosed in 1999.Never saw specialist before Never Received treatment in the past No history of pathologic fracture or ONJ. Has few servings of dietary calcium per day in the form of occasional . Not Takes Calcium supplement . Not Takes Vitamin D daily. Denies ever using PPI, anticoagulant, antiepileptic or glucocorticoid medication. Does weight bearing exercise several days per week in the form of walking . 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 Not UTD on dental cleanings and sees dentist every 6 months. No planned upcoming dental work or extractions. DXA dated 04/20/2024:COMPARISON: This is the patient's baseline examination. TECHNIQUE: Using a [employer] DXA System (software version: 13.1) manufactured by [employer], dual-energy x-ray absorptiometry was performed of the lumbar spine and left hip. The images are of good technical quality. Summary results are attached. FINDINGS: LEFT FEMUR, NECK: BMD 0.751 g/cm2, Z-score -1.8, T-score -2.1, osteopenia. LEFT FEMUR, TOTAL: BMD 0.823 g/cm2, Z-score -1.5, T-score -1.5, osteopenia. AP SPINE L1-L4: BMD 0.877 g/cm2, Z-score -2.0, T-score -2.5, osteoporosis. IDENTIFIED RISK FACTORS: Menopause. HISTORY OF FRACTURE: None listed. MEDICATIONS: Calcium, vitamin D. MM/XR DEXA axial skeleton IMPRESSION: 1. DIAGNOSIS: Osteoporosis based on the lowest T-score value of -2.5 in the lumbar spine applying World Health Organization criteria. Labs: Secondary workup negative [facility] Medical History (Updated 04/21/24 @ 16:12 by Tracie Horta [facility]) delivery delivered Surgical History History of throat surgery Status post removal of thyroid nodule Family History Mother No problems noted. Daughter No problems noted. Social History Household Members: Family Housing: House Are you a primary career technical education instructor to a significant other at home: No Do you presently have visiting nurse or other home services: No 75 years or older and lives alone: No Alcohol intake: never Patient Tobacco Use Status: Never used Tobacco Cognitive needs: No Hearing needs: No Vision needs: No Physical Exam Vital Signs: Last Vital Signs Pulse 47 L 09/08/24 11:34 BP 152/72 H 09/08/24 11:34 Pulse Ox 99 09/08/24 11:34 Oxygen Delivery Method Room Air 09/08/24 11:34 BMI result Body Mass Index 26.7 Assessment & Plan Assessment & Plan (1) Osteoporosis: Comment: 04/2024 1. DIAGNOSIS: Osteoporosis based on the lowest T-score value of -2.5 in the lumbar spine applying World Health Organization criteria. Code(s): M81.0 - Age-related osteoporosis without current pathological fracture Category: Medical Plan: This is a 64-year-old female with a history of borderline osteoporosis. Secondary causes have been ruled out 1. Borderline Osteoporosis: The patient's T-score of -2.5 suggests monitoring without immediate pharmacologic intervention due to her active lifestyle and compliance with calcium and vitamin D intake. Follow up in two years for repeat bone density testing to evaluate progression. The patient returned to the care of her primary care provider can recheck a DEXA bone density in 2 years time if this significant decline in the bone density, an oral bisphosphonate like alendronate can be started by the patient's primary care provider with the patient returned back to endocrinology. I discussed at length the current findings of borderline osteoporosis, which is monitored with dietary and lifestyle modifications, including calcium and vitamin D supplementation. The risks and benefits of initiating pharmacologic treatment were thoroughly reviewed, focusing on the potential side effects and the relatively low current fracture risk. We agreed to reevaluate with a bone density test in two years unless new fractures occur. The patient had an opportunity to ask questions regarding treatment plan. The patient expressed understanding and agreement with the above treatment plan. Patient was informed and verbally consented to the use of an ambient scribe for clinic note documentation during this visit. Coding Level of Care Code Est Pt Level 3 (15434) Diagnoses Osteoporosis M81.0
[2024-09-08 11:34] VITALS: BP 152/72; PULSE 47; O2SAT 99; BMI 27.8
== END 2024-09-08 12:04 | disposition home or self-care (01) ==
LOC: HO.ENCR 11:30
PROVIDERS: PCP Nurse Practitioner Family; Visit Provider Internal Medicine Endocrinology, Diabetes & Metabolism
DX: M81.0 Age-related osteoporosis without current pathological fracture (principal)
CPT/HCPCS: 99213

== ENCOUNTER → 2024-09-08 11:30 | Outpatient (BNVA) | payer OTHER, SELFPAY | PROVIDERS: PCP Nurse Practitioner Family; Visit Provider Internal Medicine Endocrinology, Diabetes & Metabolism | DX: M81.0 Age-related osteoporosis without current pathological fracture (principal) | CPT/HCPCS: 99212 ==

== ENCOUNTER 2025-03-22 08:11 | Outpatient (REF) | payer OTHER, SELFPAY ==
[2025-03-22 11:46] LABS: Alanine Aminotransferase 20 U/L (0-31); Albumin Level 4.2 g/dL (3.5-5.0); Alkaline Phosphatase 91 U/L (39-117); Anion Gap 9 (12-20); Aspartate Amino Transferase 26 U/L (5-31); Blood Urea Nitrogen 12 mg/dL (9-16); Calcium 9.1 mg/dL (8.4-10.2); Carbon Dioxide 30 mmol/L (22-29); Chloride 106 mmol/L (96-108); Cholesterol 93 mg/dL (<200); Estimated Glomerular Filt Rate > 60; HDL Cholesterol 32 mg/dL (>40); Iron 94 mcg/dL (30-160); Percent Iron Saturation 37 % (15-50); Potassium 3.6 mmol/L (3.3-5.1); Sodium 141 mmol/L (135-145); Total Iron Binding Capacity 252 mcg/dL (228-428); Total Protein 6.8 g/dL (6.5-8.0); Triglycerides 40 mg/dL (<150); Unsaturated Iron Binding 158 ug/dL
[2025-03-22 12:22] LABS: Folate 14.1 ng/mL (> or = 4.0); Vitamin B12 855 pg/mL (200-900)
== END 2025-03-22 08:12 | disposition home or self-care (01) ==
LOC: HO.LAB 08:11
PROVIDERS: PCP Nurse Practitioner Family; Visit Provider Nurse Practitioner Family
DX: Z00.00 Encounter for general adult medical examination without abnormal findings (principal); Z23 Encounter for immunization; Z12.11 Encounter for screening for malignant neoplasm of colon; I10 Essential (primary) hypertension; E11.8 Type 2 diabetes mellitus with unspecified complications; D50.9 Iron deficiency anemia, unspecified; E78.00 Pure hypercholesterolemia, unspecified; I73.9 Peripheral vascular disease, unspecified; M81.0 Age-related osteoporosis without current pathological fracture; Z78.0 Asymptomatic menopausal state; Z79.84 Long term (current) use of oral hypoglycemic drugs; Z79.899 Other long term (current) drug therapy; Z68.28 Body mass index [BMI] 28.0-28.9, adult
CPT/HCPCS: 36415; 80053; 80061; 82306; 82570; 82607; 82746; 83036; 83540; 84443; 90471; 90656; 96127; 99396

== ENCOUNTER 2025-03-22 08:11 | Outpatient (AMB) | payer OTHER, SELFPAY ==
--- NOTE | 2025-03-22 08:11 | MHC.PC.OV ---
Vital Signs 03/22/25 08:17 Height 5 ft 3.45 in Weight 153 lb 8 oz BMI 26.8 BP 138/78 Blood Pressure Location Lt brachial Position Sitting Respiration 12 Pulse 45 L Pulse Source Pulse Oximeter Temp 97.2 F Temp Source Oral Pulse Oximetry (%) 99 Oxygen Delivery Method Room Air Intake Visit Reasons: 1 year CPE Intake Note: CPE. Patient has been without telmisartan and amlodipine 40mg. Pot Room Supervisor Required: No Allergies allopurinol Allergy (Severe, Verified 03/22/25 08:25) mouth stiff Medication List - Last Reconciled 03/22/25 by Tracie Horta, [employer]-BC atorvastatin 40 mg PO DAILY glipizide 10 mg PO DAILY metformin 1,000 mg PO BID 90 days multivitamin with iron 1 tab PO DAILY telmisartan-amlodipine 40-5 mg 1 tab PO DAILY Tobacco use date assessed: 03/22/25 Fall risk assessment: No Falls in past year Last assessed Fall Risk: 03/22/25 Dental Screening Dental Screen Date: 03/22/25 Did you have a dental visit in the last 12 months?: Yes Did you have a dental problem in the last 6 months where you did not have access to dental care?: No Was dental information given to patient?: Patient has dentist HPI HPI Comments History of Present Illness Details 63-year-old Citizen Of [place] Creole speaking F with hypertension, type 2 diabetes mellitus, hyperlipidemia, glaucoma, anemia, PVD, osteoporosis s/p c section, thyroid nodule removal 2020, cataract removal bilat Health Maintenance: Colon has never had one. Referred to GI but did not attend. Cologaurd ordered today Mammo 04/30/24 Normal Dexa 04/2024 Osteoporosis PAP N/A Tdap 03/26/19, Flu 03/22/25 Specialists: Optho: DM Eye exam: January 2025 [facility]. Wears glasses. Needs local referral. placed today [facility] Pot Room Supervisor: Preferred son, who is present today. Here today for CPE & chronic dz mgmt. fell out of care. DM: Taking meds as directed. A1c 7.2%. Reports DM Eye UTD. + glaucoma HTN controlled on current meds, needs refill Osteoporosis referred to endo, but fell out of care, wishes for new referral. HLD tolerant of statin. Due for labs. Anemia taking MVI w Iron. Denies overt bleeding Plan Routine screening labs today Cologuard ordered Endo and Optho referrals Flu vaccine today Cont all meds as prescribed; FU 1 year for CPE sooner PRN An additional 20 minutes was spent addressing the problem(s) noted at todays visit. This includes time spent before the visit reviewing the chart, time spent during the visit, and time spent after the visit on documentation reviewing laboratory results, diagnostic imaging, medications, performing a medically necessary evaluation, counseling on diagnoses, care coordination, ordering appropriate tests, ordering appropriate medications, review of tests performed by other providers, reporting test results with the patient, communication with other healthcare providers. [facility], [facility] Medical History (Updated 03/22/25 @ 08:41 by Tracie Horta [facility]) delivery delivered Surgical History History of throat surgery Status post removal of thyroid nodule Family History Mother No problems noted. Daughter No problems noted. Social History Household Members: Family Housing: House Are you a primary animal care assistant to a significant other at home: No Do you presently have visiting nurse or other home services: No 75 years or older and lives alone: No Alcohol intake: never Patient Tobacco Use Status: Never used Tobacco e-Cigarette/Vaping Use: Never Used Second Hand Smoke Exposure: No Current occupational status: retired Current occupational exposures/hazards: No Cognitive needs: No Hearing needs: No Vision needs: No Questionnaire PHQ-9 Over the last 2 weeks, how often have you been bothered by any of the following problems? 1. Little interest or pleasure in doing things: not at all 2. Feeling down, depressed, or hopeless: not at all 3. Trouble falling or staying asleep, or sleeping too much: not at all 4. Feeling tired or having little energy: not at all 5. Poor appetite or overeating: not at all 6. Feeling bad about yourself - or that you are a failure or have let yourself or your family down: not at all 7. Trouble concentrating on things, such as reading the newspaper or watching television: not at all 8. Moving or speaking so slowly that other people could have noticed. Or the opposite - being so fidgety or restless that you have been moving around a lot more than usual: not at all 9. Thoughts that you would be better off or of hurting yourself in some way: not at all Total score: 0 Depression Screening Interpretation: Negative Depression Screening Done: Yes 30477 - PHQ-9 Billing: Yes Source: Developed by Drs. Johnathan Juárez, Chichi Keene, Robbie Woods and colleagues, with an educational aime from [employer]. Thrive Questionnaire Date Thrive assessed: 03/15/25 I am a: Patient What is your living situation today?: I have a steady place to live Within the past 12 months, did the food you bought not last and you didn't have the money to get more?: Never true Within the past 12 months, did you worry whether your food would run out before you got money to buy more?: Never true Do you have trouble paying for medicines?: No Do you have trouble getting transportation to medical appointments?: Yes Do you have trouble paying your heating and electricity bill?: No Do you have trouble taking care of your child, family member or friend?: No Do you have trouble with day-to-day activities such as bathing, preparing meals, shopping, managing finances, etc.?: No Are you currently unemployed and looking for a job?: No Are you interested in more education?: No Please select the resources that you would like help with: Transportation Currently or been in a relationship where the following occur: No concerns reported THRIVE Score: 1 AUDIT C Alcohol Use Questionnaire (AUDIT-C) 1. How often do you have a drink containing alcohol?: Monthly or less 2. How many drinks containing alcohol do you have on a typical day when you are drinking?: 1 or 2 3. How often do you have six or more drinks on one occasion?: Never Total Score: 1 Score Reviewed/Action Taken: Yes CHRISTIN-7 AMB Questionnaire CHRISTIN-7 Date CHRISTIN - 7 assessed: 03/22/25 Feeling nervous, anxious, or on edge: 0 = Not at all Not being able to stop or control worryin = Not at all Worrying too much about different things: 0 = Not at all Trouble relaxin = Several days Being so restless that it is hard to sit still: 1 = Several days Becoming easily annoyed or irritable: 0 = Not at all Feeling afraid as if something awful might happen: 0 = Not at all Total CHRISTIN-7 score (0-4 normal; 5-9 mild; 10-14 moderate; 15-21 severe): 2 Source: Developed by Drs. Johnathan Juárez, Chichi Keene, Robbie Woods and colleagues, with an educational aime from [employer]. CHRISTIN-7 Assessment Billing CHRISTIN-7 Assessment Tool: CHRISTIN-7 Assessment 63988 Physical exam (Primary Care) Vital Signs: Last Vital Signs Temp 97.2 F 03/22/25 08:17 Pulse 45 L 03/22/25 08:17 Resp 12 03/22/25 08:17 BP 138/78 03/22/25 08:17 Pulse Ox 99 03/22/25 08:17 Oxygen Delivery Method Room Air 03/22/25 08:17 BMI result Body Mass Index 26.8 BMI Assessment/Plan discussion: High BMI High, discussed plan: lifestyle Tobacco/Smoking Status: Tobacco use Status Tobacco use date assessed 03/22/25 03/22/25 08:13 Patient Tobacco Use Status Never used Tobacco 03/22/25 08:13 e-Cigarette/Vaping Use Never Used 03/22/25 08:13 PHQ-9: PHQ-9 Score PHQ-9: Total score 11 03/22/25 08:28 Depression Screening Interpretation: Negative Thrive Assessment: Date of Thrive Assessment Date Thrive assessed 03/15/25 03/22/25 08:13 Currently or been in a relationship where the following occur: No concerns reported Advance Care Planning discussion: Exists, not on file Date of discussion: 03/22/25 Forms completed: Health Care Proxy and MOLST Time spent: 1-15 minutes, not on file Actual minutes spent: 5 Did not discuss due to Cultural/Spiritual beliefs: Yes Const Other: General: Well developed, well nourished, in no acute distress. Appears stated age. Head: Normocephalic, atraumatic. Eyes: Pupils are equal, round and reactive to light and accommodation. Conjunctivae are clear. Vision grossly normal. Ears: TMs clear AU, EACS WNL Nose: Patent, without discharge. Mouth: There are no ulcers or lesions noted. No inflammation, no post nasal drip, no plaques nor exudates. Neck: Supple, no adenopathy or thyromegaly. Lungs: Clear to auscultation bilaterally. No rales, rhonchi or wheeze noted. Good air flow in all humphrey. Heart: Regular rate and rhythm. No murmurs, click, rubs or gallops are noted. Abdomen: Bowel sounds present in all quadrants. The abdomen is soft, nontender, with no masses or organomegaly noted. No hernias are noted. Musculoskeletal: Joints are nontender, without swelling, redness, or effusions. Range of motion is observed to be normal. Pulses: Peripheral pulses are equal and palpable bilaterally. Extremities: No clubbing, cyanosis nor edema is noted. Hairless, decreased PP bilat,skin intact Normal monofilament and vibratory sensation bilat Neurologic: Gait and station normal. Cranial Nerves 2-12 intact. Motor strength grossly symmetrical and intact. No sensory loss. Balance normal. Skin: No rashes, ulcers, or lesions noted. Turgor is good. Skin color is good. Hair and nails are without abnormalities. Psych: Normal eye contact, affect and mood appropriate, and normal interactions. Patient is alert and appropriate to context. Office Procedures Diabetic Foot Exam G9226 - Diabetic Foot Exam Flu Questionnaire Does the patient have a severe egg allergy?: No Does the patient have severe life threatening allergies?: No Does the patient have a fever or illness today?: No Has the patient ever had Guillain-[place] Syndrome?: No Has the patient ever had any past reaction to a flu shot?: No Results AMB Hemoglobin A1c AMB Hemoglobin A1c 7.2 % Last Edit by Jackelin Kinney MA on 03/22/25 08:27 Immunizations Fluarix [id number] (PF) 45 mcg (15 mcg x 3)/0.5 mL IM syringe Performing Provider: GRACIE Arce Performing Location: [facility] Administered by: Jackelin Kinney MA on 03/22/25 08:39 Dose Route Admin Location Dispensed Lot Number Expiration Date INC Watch Dial Printer 0.5 mL IM Left Deltoid 0.5 mL [id number] 12/05/25 [id number] [facility] V[facility] Given Date VIS Provided VIS Publication Date 03/22/25 Single Vaccine 24 Eligibility Eligibility Date Funding Source Not [facility] Eligible 03/22/25 Private Results Reviewed Results Reviewed: Laboratory Last Values Hgb A1c (Clinic) 7.2 % (4.0-6.0) H 03/22/25 08:22 Coding Level of Care Code Est Pt Level 3 (51621) Est Pt Prev Care 40-64y(40537) Diagnoses Encounter for general adult medical examination without abnormal findings Z00.00 Primary hypertension I10 Hypertension type: primary hypertension PVD (peripheral vascular disease) I73.9 Hypercholesteremia E78.00 DM type 2 causing complication E11.8 Osteoporosis M81.0 Screen for colon cancer Z12.11 Menopause Z78.0 Microcytic anemia D50.9 Laboratory exam ordered as part of routine general medical examination Z00.00 Influenza vaccination administered at current visit Z23 CPT Codes Diabetic Foot Exam - CPT: G9226 - Diabetic Foot Exam ([id number]) Additional Codes PHQ-9 - 90427 - PHQ-9 Billing: Yes ([id number]) CHRISTIN-7 Assessment Billing - CHRISTIN-7 Assessment Tool: CHRISTIN-7 Assessment 69331 ([id number]) Vital Signs *Quality* - Advance Care Planning discussion: Exists, not on file ([id number]) Vital Signs *Quality* - Time spent: 1-15 minutes, not on file ([id number]) Vital Signs *Quality* - Did not discuss due to Cultural/Spiritual beliefs: Yes ([id number]) Assessment & Plan Assessment & Plan (1) Encounter for general adult medical examination without abnormal findings: Onset Date: ~03/22/25 Code(s): Z00.00 - Encounter for general adult medical examination without abnormal findings Category: Medical (2) Hypertension: Code(s): I10 - Essential (primary) hypertension Category: Medical Qualifiers: Hypertension type: primary hypertension Qualified Code(s): I10 - Essential (primary) hypertension (3) PVD (peripheral vascular disease): Comment: based on clinical exam, monitor skin integrity. Code(s): I73.9 - Peripheral vascular disease, unspecified Category: Medical (4) Hypercholesteremia: Code(s): E78.00 - Pure hypercholesterolemia, unspecified Category: Medical (5) DM type 2 causing complication: Comment: HTN and HLD Code(s): E11.8 - Type 2 diabetes mellitus with unspecified complications Category: Medical (6) Osteoporosis: Comment: 04/2024 1. DIAGNOSIS: Osteoporosis based on the lowest T-score value of -2.5 in the lumbar spine applying World Health Organization criteria. ' referred back to endo Code(s): M81.0 - Age-related osteoporosis without current pathological fracture Category: Medical (7) Screen for colon cancer: Comment: cologuard ordered Code(s): Z12.11 - Encounter for screening for malignant neoplasm of colon Category: Medical (8) Menopause: Code(s): Z78.0 - Asymptomatic menopausal state Category: Medical (9) Microcytic anemia: Comment: repeat labs Code(s): D50.9 - Iron deficiency anemia, unspecified Category: Medical (10) Laboratory exam ordered as part of routine general medical examination: Code(s): Z00.00 - Encounter for general adult medical examination without abnormal findings Category: Medical (11) Influenza vaccination administered at current visit: Code(s): Z23 - Encounter for immunization Category: Medical Plan . Orders: Orders Microalbumin, Random (w Creat) Today E11.8 - Type 2 diabetes mellitus with unspecified complications, I10 - Essential (primary) hypertension AMB Hemoglobin A1c Today E11.8 - Type 2 diabetes mellitus with unspecified complications, Z13.9 - Encounter for screening, unspecified Lipid Panel Today D50.9 - Iron deficiency anemia, unspecified, E11.8 - Type 2 diabetes mellitus with unspecified complications, E78.00 - Pure hypercholesterolemia, unspecified, I10 - Essential (primary) hypertension, Z68.28 - Body mass index [BMI] 28.0-28.9, adult IRON PROFILE Today D50.9 - Iron deficiency anemia, unspecified Influenza [id number] Immunization Today Z23 - Encounter for immunization Comprehensive Met. Panel Today D50.9 - Iron deficiency anemia, unspecified, E11.8 - Type 2 diabetes mellitus with unspecified complications, E78.00 - Pure hypercholesterolemia, unspecified, I10 - Essential (primary) hypertension, Z68.28 - Body mass index [BMI] 28.0-28.9, adult TSH reflex Free T4 Today D50.9 - Iron deficiency anemia, unspecified, E11.8 - Type 2 diabetes mellitus with unspecified complications, E78.00 - Pure hypercholesterolemia, unspecified, I10 - Essential (primary) hypertension, Z68.28 - Body mass index [BMI] 28.0-28.9, adult Vitamin B12 and Folate Today D50.9 - Iron deficiency anemia, unspecified, E11.8 - Type 2 diabetes mellitus with unspecified complications, E78.00 - Pure hypercholesterolemia, unspecified, I10 - Essential (primary) hypertension, Z68.28 - Body mass index [BMI] 28.0-28.9, adult Vitamin D 25-OH Total Today D50.9 - Iron deficiency anemia, unspecified, E11.8 - Type 2 diabetes mellitus with unspecified complications, E78.00 - Pure hypercholesterolemia, unspecified, I10 - Essential (primary) hypertension, Z68.28 - Body mass index [BMI] 28.0-28.9, adult Referrals Endocrinology Referral M81.0 - Age-related osteoporosis without current pathological fracture Ophthalmology Referral E11.8 - Type 2 diabetes mellitus with unspecified complications Cologuard Test Z12.11 - Encounter for screening for malignant neoplasm of colon Medications: New telmisartan-amlodipine 40-5 mg 1 tab PO DAILY 90 tabs 2RF Refilled glipizide 10 mg PO DAILY 90 tabs 2RF metformin 1,000 mg PO BID 180 tabs 2RF 90 days multivitamin with iron 1 tab PO DAILY 90 tabs 2RF atorvastatin 40 mg PO DAILY 90 ea 2RF E78.6 - Lipoprotein deficiency Patient Instructions: Health screenings for women You should visit your health care provider from time to time, even if you are healthy. The purpose of these visits is to: Screen for medical issues Assess your risk for future medical problems Encourage a healthy lifestyle Update vaccinations and other preventive care services Help you get to know your provider in case of an illness Information Even if you feel fine, you should still see your provider for regular checkups. These visits can help you avoid problems in the future. For example, the only way to find out if you have high blood pressure is to have it checked regularly. High blood sugar and high cholesterol levels also may not have any symptoms in the early stages. A simple blood test can check for these conditions. There are specific times when you should see your provider or receive specific health screenings. The [place] Preventive Services Task Force publishes a list of recommended screenings. Below are screening guidelines for women ages 18 to 39. BLOOD PRESSURE SCREENING Your blood pressure should be checked at least once every 3 to 5 years if: Your blood pressure is in the normal range (top number less than 120 mm Hg and bottom number less than 80 mm Hg) You don't have risk factors for high blood pressure Ask your provider if you need your blood pressure checked more often if: The top number is 120 to 129 mm Hg or the bottom number is 70 to 79 mm Hg You have diabetes, heart disease, kidney problems, are overweight, or have certain other health conditions You have a first-degree relative with high blood pressure You are Black You had high blood pressure during a If the top number is 130 mm Hg or greater or the bottom number is 80 mm Hg or greater, this is considered stage 1 hypertension. Schedule an appointment with your provider to learn how you can reduce your blood pressure. Watch for blood pressure screenings in your area. Ask your provider if you can stop in to have your blood pressure checked. BREAST CANCER SCREENING Experts do not agree about the benefits of breast self-exams in finding breast cancer or saving lives. Talk to your provider about what is best for you. A screening mammogram is not recommended for most women under age 40. Your provider may discuss and recommend mammograms, MRI scans, or ultrasounds if you have an increased risk for breast cancer, such as: A mother or sister who had breast cancer at a young age (most often starting screening earlier than the age the close relative was diagnosed) You carry a high-risk genetic marker CERVICAL CANCER SCREENING Cervical cancer screening should start at age 21 years unless your provider advises otherwise. After the first test: Women ages 21 through 29 should have a Pap test every 3 years. Exoprts do not agree on whether HPV testing is recommended for this age group. Women ages 30 through 65 should be screened with either a Pap test every 3 years or the HPV test every 5 years or both tests every 5 years (called cotesting ). Women who have been treated for precancer (cervical dysplasia) should continue to have Pap tests for 20 years after treatment or until age 65, whichever is longer. If you have had your uterus and cervix removed (total hysterectomy), and you have not been diagnosed with cervical cancer or precancer (high grade cervical neoplasia), you do not need cervical cancer screening. CHOLESTEROL SCREENING Cholesterol screening should begin at: Age 45 for women with no known risk factors for coronary heart disease Age 20 for women with known risk factors for coronary heart disease Repeat cholesterol screening should take place: Every 5 years for women with normal cholesterol levels More often if changes occur in lifestyle (including weight gain and diet) More often if you have diabetes, heart disease, kidney problems, or certain other conditions DIABETES SCREENING You should be screened for diabetes starting at age 35 and then repeated every 3 years if you have no risk factors for diabetes. Screening may need to start earlier and be repeated more often if you have other risk factors for diabetes, such as: You have a first degree relative with diabetes. You are overweight or have obesity. You have high blood pressure, prediabetes, or a history of heart disease. Screening for diabetes should be done if you are planning to become and you are overweight and have other risk factors such as high blood pressure. DENTAL EXAM Go to the dentist once or twice every year for an exam and cleaning. Your dentist will evaluate if you need more frequent visits. EYE EXAM Have an eye exam every 5 to 10 years before age 40. If you have vision problems, have an eye exam every 2 years or more often if recommended by your provider. You should have an eye exam that includes an examination of your retina (back of your eye) at least every year if you have diabetes. IMMUNIZATIONS Commonly needed vaccines include: Flu shot: get one every year. COVID-19 vaccine: ask your provider what is best for you. Tetanus-diphtheria and acellular pertussis (Tdap) vaccine: have one at or after age 19 as one of your tetanus-diphtheria vaccines if you did not receive it as an adolescent. Tetanus-diphtheria: have a booster (or Tdap) every 10 years. Varicella vaccine: receive 2 doses if you never had chickenpox or the varicella vaccine. Hepatitis B vaccine: receive 2, 3, or 4 doses, depending on your exact circumstances. Measles, mumps, and rubella (MMR) vaccine: receive 1 to 2 doses if you are not already immune to MMR. Your provider can tell you if you are immune. Ask your provider about the human papillomavirus (HPV) vaccine if: You have not received the HPV vaccine in the past You have not completed the full vaccine series (you should catch up on this shot) Ask your provider if you should receive other immunizations if you have certain health problems that increase your risk for some diseases such as pneumonia. INFECTIOUS DISEASE SCREENING Women who are sexually active should be screened for chlamydia and gonorrhea up until age 25. Women 25 years and older should be screened for chlamydia and gonorrhea if at high risk. Screening for hepatitis C: All adults ages 18 to 79 should get a one-time test for hepatitis C. people should be screened at every . Screening for human immunodeficiency virus (HIV): All people ages 15 to 65 should get a one-time test for HIV. Depending on your lifestyle and medical history, you may also need to be screened for infections such as syphilis and HIV, as well as other infections. PHYSICAL EXAM All adults should visit their provider from time to time, even if they are healthy. The purpose of these visits is to: Screen for disease Assess your risk of future medical problems Encourage a healthy lifestyle Update your vaccinations and other preventive care services Maintain a relationship with a provider in case of an illness Your height, weight, and BMI should be checked at every exam. During your exam, your provider may ask you about: Depression and anxiety Diet and exercise Alcohol and tobacco use Safety issues, such as using seat belts, smoke detectors, and intimate partner violence Your medicines and risk for interactions SKIN SELF-EXAM Your provider may check your skin for signs of skin cancer, especially if you're at high risk, such as if you: Have had skin cancer before Have close relatives with skin cancer Have a weakened immune system OTHER SCREENING Talk with your provider about colon cancer screening if you have a strong family history of colon cancer or polyps, or if you have had inflammatory bowel disease or polyps yourself. Routine bone density screening of women under 40 is not recommended.
[2025-03-22 08:17] VITALS: BP 138/78; PULSE 45; RESP 12; TEMP 36.2; O2SAT 99; BMI 26.8
== END 2025-03-22 08:41 | disposition home or self-care (01) ==
LOC: HO.HMCFM 08:11
PROVIDERS: PCP Nurse Practitioner Family; Visit Provider Nurse Practitioner Family
DX: Z00.00 Encounter for general adult medical examination without abnormal findings (principal); E11.8 Type 2 diabetes mellitus with unspecified complications; I10 Essential (primary) hypertension; I73.9 Peripheral vascular disease, unspecified; E78.00 Pure hypercholesterolemia, unspecified; M81.0 Age-related osteoporosis without current pathological fracture; Z12.11 Encounter for screening for malignant neoplasm of colon; Z78.0 Asymptomatic menopausal state; D50.9 Iron deficiency anemia, unspecified; Z23 Encounter for immunization